=== PATIENT | male | born 1960 | race Two or more races ===

== ENCOUNTER 2020-01-15 14:20 | Emergency (ER) | payer OTHER ==
[~2020-01-15] VITALS: Ht 175.3 cm; Wt 113.6 kg
[2020-01-15] MEDS ORDERED: [UNRECOGNIZED DRUG - OTHER] PO (14:44)
[2020-01-15] MEDS ORDERED: [UNRECOGNIZED DRUG - REMARK] PO (14:44)
[2020-01-15] MEDS ORDERED: POVIDONE-IODINE 10% 15 ML SOLUTION UD TP ONE (16:15)
[2020-01-15] MEDS ORDERED: CefTRIAXone SODIUM 1 GM/VIAL IM ONE (16:15)
[2020-01-15] MEDS ORDERED: HYDROCODONE/ACETAMINOPHEN 5-325 MG TABLET PO ONE (16:15)
[2020-01-15] MEDS ORDERED: LIDOCAINE/PF 1% 2 ML VIAL IM ONE (16:15)
[2020-01-15] MEDS ORDERED: LIDOCAINE 1% 10 ML VIAL INJ ONE (16:15)
[2020-01-15 18:09] VITALS: BP 127/80
== END 2020-01-15 18:42 | disposition home or self-care (01) ==
LOC: EMS 14:36
DX: K61.0 Anal abscess (principal); E11.9 Type 2 diabetes mellitus without complications; I10 Essential (primary) hypertension
CPT/HCPCS: 46050; 96372; 99284; J0696; J3490 ×2; 46040